=== PATIENT | female | born 1970 | race African-American/Black ===

== ENCOUNTER 2020-12-11 13:22 | Emergency (ER) | payer OTHER ==
[~2020-12-11] VITALS: Ht 170.2 cm; Wt 72.0 kg
[2020-12-11 13:44] VITALS: BP 168/88
[2020-12-11] MEDS ORDERED: ONDANSETRON HCL 4MG/2ML INJ IV STA (14:57)
[2020-12-11] MEDS ORDERED: MORPHINE SULFATE 4 MG/ML CPJ (NOT FOR IM USE) IV STA (14:57)
[2020-12-11] MEDS ORDERED: SODIUM CHLORIDE 0.9% 1,000 ML IV ONE (15:00)
== END 2020-12-11 15:52 | disposition left against medical advice (07) ==
LOC: ER 13:22
DX: R11.2 Nausea with vomiting, unspecified (principal); R10.31 Right lower quadrant pain; R10.11 Right upper quadrant pain; I10 Essential (primary) hypertension
CPT/HCPCS: 71045; 93005; 99283